=== PATIENT | female | born 2000 | race Caucasian/White ===

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

== ENCOUNTER 2022-11-14 17:31 | Emergency (ER) | payer MEDICAID ==
[~2022-11-14] VITALS: Ht 167.6 cm; Wt 90.9 kg
[2022-11-14 18:21] VITALS: BP 121/82
== END 2022-11-14 19:46 | disposition home or self-care (01) ==
LOC: ER 17:33
DX: M25.461 Effusion, right knee (principal); Z79.899 Other long term (current) drug therapy
CPT/HCPCS: 29505; 73564; 99284

== ENCOUNTER 2023-03-05 21:16 | Emergency (ER) | payer MEDICAID ==
[~2023-03-05] VITALS: Ht 170.2 cm; Wt 90.9 kg
[2023-03-05 21:36] VITALS: BP 123/81
[2023-03-05] MEDS ORDERED: dexamethasone sod phosphate 10mg/ml inj PO STA (22:29)
[2023-03-05] MEDS ORDERED: AMOX-117 PO (22:58)
== END 2023-03-05 23:15 | disposition home or self-care (01) ==
LOC: ER 21:17
DX: J02.9 Acute pharyngitis, unspecified (principal); Z20.822 Contact with and (suspected) exposure to COVID-19
CPT/HCPCS: 87081; 87880; 99284; J1100

== ENCOUNTER 2023-03-08 01:28 | Emergency (ER) | payer MEDICAID ==
[~2023-03-08] VITALS: Ht 170.2 cm; Wt 90.9 kg
[~2023-03-08 01:28] MED LIST changes: +AMOX-117 PO
[2023-03-08] MEDS ORDERED: LIDOcaine Viscous 15ml cup MM ONE (02:05)
[2023-03-08] MEDS ORDERED: acetaminophen 325mg tablet PO ONE (02:05)
[2023-03-08] MEDS ORDERED: ketorolac trometh inj. 60 MG/2 ML VIAL IM ONE (02:05)
[2023-03-08] MEDS ORDERED: LIDO20SO16 PO (02:10)
[2023-03-08 02:22] VITALS: BP 108/69
== END 2023-03-08 02:28 | disposition home or self-care (01) ==
LOC: ER 01:29
DX: J02.9 Acute pharyngitis, unspecified (principal)
CPT/HCPCS: 96372; 99283; J1885

== ENCOUNTER 2023-04-21 20:41 | Emergency (ER) | payer MEDICAID ==
[~2023-04-21] VITALS: Ht 170.2 cm; Wt 86.0 kg
[~2023-04-21 20:41] MED LIST changes: -AMOX-117 PO; +LIDO20SO16 PO
[2023-04-21 20:45] VITALS: BP 116/77
--- NOTE | 2023-04-21 21:14 | NUR ---
AT BEDSIDE FOR EXAM WITH MANDA WALSH.
[2023-04-21] MEDS ORDERED: cephalexin 500mg capsule PO ONE (21:15)
[2023-04-21] MEDS ORDERED: CEPH250T PO (21:15)
== END 2023-04-21 21:32 | disposition home or self-care (01) ==
LOC: ER 20:41
DX: L03.115 Cellulitis of right lower limb (principal); T63.301A Toxic effect of unspecified spider venom, accidental (unintentional), initial encounter; Z79.2 Long term (current) use of antibiotics; Z79.899 Other long term (current) drug therapy; Y92.89 Other specified places as the place of occurrence of the external cause
CPT/HCPCS: 99283

== ENCOUNTER 2024-02-22 22:21 | Emergency (ER) | payer MEDICAID ==
[~2024-02-22] VITALS: Ht 167.6 cm; Wt 85.8 kg
[2024-02-22 22:22] VITALS: BP 110/80; PULSE 88; RESP 16; TEMP 98.6; O2SAT 98
[2024-02-22] MEDS ORDERED: BENCRM TOP (22:54)
[2024-02-22] MEDS ORDERED: CEPH-585 PO (22:54)
== END 2024-02-22 23:16 | disposition home or self-care (01) ==
LOC: ER 22:21
DX: S90.562A Insect bite (nonvenomous), left ankle, initial encounter (principal); Z88.6 Allergy status to analgesic agent; W57.XXXA Bitten or stung by nonvenomous insect and other nonvenomous arthropods, initial encounter; Y93.89 Activity, other specified; Y92.89 Other specified places as the place of occurrence of the external cause; Y99.8 Other external cause status
CPT/HCPCS: 99283